=== PATIENT | female | born 1985 | race Caucasian/White ===

== ENCOUNTER 2018-06-06 06:28 | Day surgery (SDC) | payer OTHER ==
[2018-06-06] MEDS ORDERED: SEVOFLURANE 15 MIN (07:00)
[2018-06-06 08:54] LABS: ADD MAN DIFF? NO
[2018-06-06 09:02] LABS: WHITE BLOOD COUNT 6.7 10^3/ul (4.8-10.8)
[2018-06-06 09:02] LABS: BASOPHILS % 0.3 % (0.0-2.0); EOSINOPHILS # 0.2 10^3/ul (0.0-0.5); EOSINOPHILS % 2.4 % (0.0-7.0); HEMATOCRIT 38.3 % (37.0-47.0); HEMOGLOBIN 12.3 g/dl (12.0-16.0); LYMPHOCYTES # 1.8 10^3/ul (0.8-2.9); LYMPHOCYTES % 26.4 % (15.0-51.0); MEAN CORPUSCULAR HEMOGLOBIN 28.4 pg (29.0-33.0); MEAN CORPUSCULAR HGB CONC 32.1 g/dl (32.0-37.0); MEAN CORPUSCULAR VOLUME 88.5 fl (82.0-101.0); MEAN PLATELET VOLUME 10.3 fl (7.4-10.4); MONOCYTE # 0.4 10^3/ul (0.3-0.9); MONOCYTES % 6.1 % (0.0-11.0); NEUTROPHIL # 4.4 10^3/ul (1.6-7.5); NEUTROPHILS % 64.7 % (39.0-77.0); PLATELET COUNT 184 10^3/UL (140-415); RED BLOOD COUNT 4.33 10^6/ul (4.20-5.40); RED CELL DISTRIBUTION WIDTH 12.2 % (11.5-14.5)
[2018-06-06] MEDS ORDERED: LACTATED RINGER'S 1,000 ML IV (10:00)
[2018-06-06] MEDS ORDERED: ETOMIDATE 20 MG INJ (11:58)
[2018-06-06] MEDS ORDERED: LIDOCAINE 2% (SDV) 5 ML INJ (11:58)
[2018-06-06] MEDS ORDERED: PROPOFOL 20 ML (11:59)
[2018-06-06] MEDS ORDERED: MIDAZOLAM 1 MG/ML 2 ML INJ (11:59)
[2018-06-06] MEDS ORDERED: FERRIC SUBSULFATE 8 GM VIAL TOP (12:00)
[2018-06-06] MEDS ORDERED: CEFAZOLIN 1 GM INJ (12:09)
[2018-06-06] MEDS ORDERED: ONDANSETRON 4 MG INJ (12:11)
[2018-06-06] MEDS ORDERED: EPHEDrine SULFATE 50 MG/5 ML SYG (12:11)
[2018-06-06] MEDS ORDERED: LIDOCAINE 1%/EPI (1:100,000) (MDV) 20 ML (12:23)
[2018-06-06] MEDS: LIDOCAINE 1%/EPI (1:100,000) (MDV) 20 ML INJ (12:26)
[2018-06-06] MEDS ORDERED: HYDROmorphONE 1 MG/5 ML IV SYRINGE IV ×2 (12:30)
[2018-06-06] MEDS: FERRIC SUBSULFATE 8 GM VIAL TOP (12:31)
== END 2018-06-06 14:10 | disposition home or self-care (01) ==
LOC: SDS 06:28
DX: N87.9 Dysplasia of cervix uteri, unspecified (principal)
CPT/HCPCS: 57522; 84703; 85025; 86850; 86900; 86901; 88305